=== PATIENT | male | born 1955 | race African-American/Black ===

== ENCOUNTER 2017-02-13 10:08 | Inpatient (IN) | payer OTHER ==
[2017-02-13 10:40] VITALS: BMI 22.1
--- NOTE | 2017-02-13 12:38 | HP ---
COWS - Scale Resting Pulse: 0= [place] 80 or Below Sweatin=Flushed/Facial Moisture Restless Observation: 1= Difficult to Sit Still Pupil Size: 0= Normal to Room Light Bone or Joint Aches: 2= Severe Diffuse Aches Runny Nose/ Eye Tearin= Runny Nose/Eyes GI Upset > 30mins: 2= Nausea/Diarrhea Tremor Observation: 2= Slight Tremor Visible Yawning Observation: 2= >3x During Session Anxiety or Irritability: 2=Irritable/Anxious Goose Flesh Skin: 3=Piloerection COWS Score: 18 CIWA Score - CIWA Score Nausea/Vomitin-Mild Nausea/No Vomiting Muscle Tremors: 4-Moderate,w/Arms Extend Anxiety: 4-Mod. Anxious/Guarded Agitation: 4-Moderately Restless Paroxysmal Sweats: 3 Orientation: 0-Oriented Tacttile Disturbances: 0-None Auditory Disturbances: 0-None Visual Disturbances: 0-None Headache: 1-Very Mild CIWA-Ar Total Score: 17 Admission ROS S - HPI Chief Complaint: I am here to detox. Allergies/Adverse Reactions: Allergies Allergy/AdvReac Type Severity Reaction Status Date / Time No Known Allergies Allergy Verified 02/13/17 11:19 History of Present Illness: pt is a 61yr old male with a history of alcohol and heroin dependence seeking detox for treatment. Exam Limitations: No Limitations - Ebola screening Have you traveled outside of the country in the last 21 days: No Have you had contact with anyone from an Ebola affected area: No Have you been sick,other than usual withdrawal symptoms: No Do you have a fever: No - Review of Systems Constitutional: Chills, Diaphoresis, Loss of Appetite, Night Sweats, Changes in sleep, Unintentional Wgt. Loss EENT: reports: Tearing, Nose Congestion Respiratory: reports: Cough Cardiac: reports: Syncope GI: reports: Diarrhea, Nausea, Poor Appetite, Poor Fluid Intake, Vomiting, Indigestion : reports: No Symptoms Reported Musculoskeletal: reports: Back Pain, Joint Pain Integumentary: reports: Flushing, Sweating Neuro: reports: Headache, Seizure (last seizure few years ago.), Tingling, Tremors Endocrine: reports: Excessive Sweating, Flushing, Intolerance to Cold, Intolerance to Heat Hematology: reports: No Symptoms Reported Psychiatric: reports: Judgement Intact, Orientated x3, Agitated, Anxious Other Systems: Reviewed and Negative Patient History - Patient Medical History Hx Anemia: No Hx Asthma: No Hx Chronic Obstructive Pulmonary Disease (COPD): No Hx Cardiac Disorders: No Hx Hypertension: Yes Hx Hypercholesterolemia: No HX Cerebrovascular Accident: No Hx Seizures: Yes (alcohol related-last episode was in 2011) Hx Diabetes: Yes (currently not on medication) Hx Gastrointestinal Disorders: No Hx Liver Disease: No Hx Genitourinary Disorders: No Hx Sexually Transmitted Disorders: Yes (syphilis) Hx Renal Disease (ESRD): No Hx Thyroid Disease: No Hx Human Immunodeficiency Virus (HIV): No (NEGATIVE HX) Hx Hepatitis C: Yes Hx Depression: Yes Hx Suicide Attempt: No (denies) Hx Bipolar Disorder: Yes Hx Schizophrenia: No Other Medical History: anxiety - Patient Surgical History Past Surgical History: Yes Hx Neurologic Surgery: No Hx Cataract Extraction: No Hx Cardiac Surgery: No Hx Lung Surgery: No Hx Breast Surgery: No Hx Breast Biopsy: No Hx Abdominal Surgery: No Hx Appendectomy: No Hx Cholecystectomy: No Hx Genitourinary Surgery: No Hx Section: No Hx Orthopedic Surgery: No Other Surgical History: LEFT EAR DRUM X2 IN AND 2007..RELATED TO TRUAMA Anesthesia Reaction: No - PPD History Previous Implant?: Yes Documented Results: Negative w/o proof Implanted On Prior [facility] Admission?: Yes PPD to be Administered?: Yes - Reproductive History Patient is a Female of Child Bearing Age (11 -55 yrs old): No - Smoking Cessation Smoking history: Current every day smoker Have you smoked in the past 12 months: Yes Aproximately how many cigarettes per day: 20 Hx Chewing Tobacco Use: No Initiated information on smoking cessation: Yes 'Breaking Loose' booklet given: 02/13/17 - Substance & Tx. History Hx Alcohol Use: Yes Hx Substance Use: Yes Substance Use Type: Alcohol, Heroin Hx Substance Use Treatment: Yes - Substances Abused Heroin Route: Inhalation Frequency: Daily Amount used: 10 bags Age of first use: 23 Date of Last Use: 02/12/17 Alcohol-rum/beer Route: Oral Frequency: Daily Amount used: 2-3 pts./3-6 pks. Age of first use: 17 Date of Last Use: 02/13/17 Family Disease History - Family Disease History Family Disease History: Other: Mother (HTN) Admission Physical Exam [facility] - Vital Signs Vital Signs: Vital Signs - 24 hr 02/13/17 10:37 Temperature 97.7 F Pulse Rate 73 Respiratory 18 Rate Blood Pressure 166/109 - Physical General Appearance: Yes: Appropriately Dressed, Moderate Distress, Thin, Tremorous, Irritable, Sweating, Anxious HEENTM: Yes: Normal Voice, Nasal Congestion, Rhinorrhea Respiratory: Yes: Lungs Clear, Normal Breath Sounds, No Respiratory Distress Neck: Yes: Within Normal Limits Breast: Yes: Within Normal Limits Cardiology: Yes: Regular Rhythm, Regular Rate, S1, S2 Abdominal: Yes: Normal Bowel Sounds, Non Tender, Soft Genitourinary: Yes: Within Normal Limits Back: Yes: Normal Inspection Musculoskeletal: Yes: full range of Motion Extremities: Yes: Normal Capillary Refill, Tremors Neurological: Yes: Fully Oriented, Alert, Normal Response Integumentary: Yes: Normal Color, Diaphoresis Lymphatic: Yes: Within Normal Limits - Diagnostic (1) Alcohol dependence with uncomplicated withdrawal Current Visit: Yes Status: Chronic (2) Nicotine dependence Current Visit: Yes Status: Chronic Qualifiers: Nicotine product type: cigarettes (3) Opioid dependence with withdrawal Current Visit: Yes Status: Chronic (4) Essential hypertension Current Visit: Yes Status: Chronic (5) Hepatitis C carrier Current Visit: Yes Status: Chronic Cleared for Admission [facility] - Detox or Rehab [facility] Level of Care: Medically Managed Detox Regimen/Protocol: Methadone/Librium [facility] Breath Alcohol Content Breath Alcohol Content: 0.087 Urine Drug Screen - Results Drug Screen Negative: No Urine Drug Screen Results: OPI-Opiates
[2017-02-13] MEDS ORDERED: MENTHOL/PHENOL 1 EACH UD MM PRN (13:17)
[2017-02-13] MEDS ORDERED: chlordiazePOXIDE HCL 25 MG CAPSULE PO PRN (13:17)
[2017-02-13] MEDS ORDERED: hydrOXYzine PAMOATE 50 MG CAPSULE (FP) PO PRN (13:17)
[2017-02-13] MEDS ORDERED: IBUPROFEN 400 MG TABLET (FP) PO PRN (13:17)
[2017-02-13] MEDS ORDERED: guaiFENesin/D-METHORPHAN HB 10 ML UNIT-DOSE CUPS PO PRN (13:17)
[2017-02-13] MEDS ORDERED: MAG HYDROX/AL HYDROX/SIMETH 30 ML UNIT-DOSE CUP PO PRN (13:17)
[2017-02-13] MEDS ORDERED: MAGNESIUM CITRATE 300 ML BOTTLE PO PRN (13:17)
[2017-02-13] MEDS ORDERED: METHADONE HCL 10 MG TABLET (FOR DETOX USE ONLY) PO ONE ×2 (13:17→23:00)
[2017-02-13] MEDS ORDERED: NICOTINE POLACRILEX 4 MG GUM BUC PRN (13:17)
[2017-02-13] MEDS ORDERED: ACETAMINOPHEN 325 MG TABLET (FP) PO PRN (13:17)
[2017-02-13] MEDS ORDERED: P-EPHED 60MG/TRIPROLIDI 2.5MG TABLET PO PRN (13:17)
[2017-02-13] MEDS ORDERED: MAGNESIUM HYDROX 2400MG/30ML ORAL SUSPENSION 30 ML CUP PO PRN (13:17)
[2017-02-13] MEDS ORDERED: chlordiazePOXIDE HCL 25 MG CAPSULE PO ONE (13:56)
[2017-02-13] MEDS: PATIENT'S OWN MEDICATION (NON-FORMULARY) (Meloxicam 15 MG) PO SCH (14:25)
--- NOTE | 2017-02-13 15:22 | CONSULT ---
[facility] Psychiatric Consult - Data Date of interview: 02/13/17 Admission source: [facility] Identifying data: Readmission to [facility] for this 61 y/o AA male seeking detox treatment for alcohol and heroin dependence.Patient is single,a father of two,homeless,unemployed and supported on Disability benefits. Substance Abuse History: - Smoking Cessation. Smoking history: Current every day smoker. Have you smoked in the past 12 months: Yes. Aproximately how many cigarettes per day: 20. Hx Chewing Tobacco Use: No. Initiated information on smoking cessation: Yes. 'Breaking Loose' booklet given: 02/13/17. - Substance & Tx. History. Hx Alcohol Use: Yes. Hx Substance Use: Yes. Substance Use Type : Alcohol, Heroin. Hx Substance Use Treatment: Yes. - Substances Abused. Heroin. Route: Inhalation. Frequency: Daily. Amount used: 10 bags. Age of first use: 23. Date of Last Use: 02/12/17. Alcohol-rum/beer. Route: Oral. Frequency: Daily. Amount used: 2-3 pts./3-6 pks. Age of first use: 17. Date of Last Use: 02/13/17. Confirmed by patient in my interview. Medical History: Hypertension,hepatitis C,withdrawal-related seizures,diabetes mellitus,arthritis,BPH (benign prostatic hyperplasia),past treatment for syphilis and a history of surgery for ruptured tympanic membrane in 2007 ( traumatic etiology). Psychiatric History: Patient denies history of psychiatric hospitalizations.Used to be on trazodone 50 mg/hs and remeron 30 mg/hs during his 16 month stay at the [facility] substance abuse program in [facility].Off medications (own choice) for several weeks as per self-report.Diagnosed with MDD and Anxiety Disorder.Mr Boswell denies history of suicide attempts.No OPD care since discharge from the [facility] in [facility].Chronic insomnia is expressed as the most enduring issue. Physical/Sexual Abuse/Trauma History: Patient denies. Additional Comment: Urine Drug Screen Results: OPI-Opiates.Noted. Mental Status Exam - Mental Status Exam Alert and Oriented to: Time, Place, Person Cognitive Function: Good Patient Appearance: Well Groomed (wears an earring in his left earlobe) Mood: Hopeful, Euthymic Affect: Appropriate, Normal Range Patient Behavior: Fatigued, Appropriate, Cooperative Speech Pattern: Clear, Appropriate Voice Loudness: Normal Thought Process: Goal Oriented Thought Disorder: Not Present Hallucinations: Denies Suicidal Ideation: Denies Homicidal Ideation: Denies Insight/Judgement: Poor Sleep: Poorly, Difficulty falling asleep Appetite: Good Muscle strength/Tone: Normal Gait/Station: Normal Psychiatric Findings - Problem List ([place] 1, 2,3) (1) Alcohol dependence with uncomplicated withdrawal Current Visit: Yes Status: Acute (2) Opioid dependence with withdrawal Current Visit: Yes Status: Acute (3) Nicotine dependence Current Visit: Yes Status: Acute Qualifiers: Nicotine product type: cigarettes (4) Substance induced mood disorder Current Visit: Yes Status: Acute (5) Essential hypertension Current Visit: Yes Status: Chronic (6) Hepatitis C carrier Current Visit: Yes Status: Chronic (7) Insomnia Current Visit: Yes Status: Acute - Initial Treatment Plan Initial Treatment Plan: Psychoeducation.Detoxification in progress.Medications : remeron 15 mg po hs + trazodone 50 mg po hs.Side effects/benefits discussed with the patient,including the potential for priapism (trazodone).Advised to stop that medication/summon immediate medical assistance if painful/prolonged erection.Patient is in agreement with this careplan.Observation.
[2017-02-13 16:30] LABS: URINE APPEARANCE CLEAR; URINE BILIRUBIN NEGATIVE (NEGATIVE); URINE COLOR STRAW; URINE GLUCOSE (UA) NEGATIVE (NEGATIVE); URINE KETONE NEGATIVE (NEGATIVE); URINE LEUK ESTERASE NEGATIVE (NEGATIVE); URINE NITRITE NEGATIVE (NEGATIVE); URINE UROBILINOGEN NEGATIVE E.U./dl (0.2-1.0)
[2017-02-13 16:34] LABS: URINE BLOOD 1+ (NEGATIVE); URINE PROTEIN 1+ (NEGATIVE)
[2017-02-13 17:19] LABS: URINE BACTERIA RARE /hpf (NONE SEEN); URINE RBC <1 /hpf (0-3); URINE WBC <1 /hpf (3-5)
[2017-02-13] MEDS: chlordiazePOXIDE HCL 25 MG CAPSULE PO SCH ×2 (17:53→22:24)
[2017-02-13] MEDS: cloNIDine HCL 0.1 MG TABLET PO SCH (22:23)
[2017-02-13] MEDS: traZODone HCL 50 MG TABLET (FP) PO SCH (22:23)
[2017-02-13] MEDS: THIAMINE HCL 100 MG TABLET (FP) PO SCH (22:23)
[2017-02-13] MEDS: diphenhydrAMINE HCL 50 MG CAPSULE PO PRN (22:25)
[2017-02-13] MEDS: MIRTAZAPINE 15 MG TABLET (FP) PO SCH (23:15)
[2017-02-14] MEDS: chlordiazePOXIDE HCL 25 MG CAPSULE PO SCH ×4 (06:28→22:20)
[2017-02-14 10:00] LABS: MCH 30.2 pg (25.7-33.7); MCHC 32.9 g/dl (32.0-35.9); MEAN CELL VOLUME 91.8 fl (80-96); MEAN PLT VOLUME 9.9 fl (7.5-11.1); PLATELET COUNT 183 K/MM3 (134-434); WHITE BLOOD COUNT 5.6 K/mm3 (4.0-10.0)
[2017-02-14] MEDS ORDERED: METHADONE HCL 10 MG TABLET (FOR DETOX USE ONLY) PO SCH (10:00)
[2017-02-14 10:24] LABS: BILIRUBIN,TOTAL 0.7 mg/dL (0.2-1.0); CALCIUM 9.3 mg/dL (8.5-10.1); CREATININE 1.6 mg/dL (0.7-1.3); TOT PROT 8.7 g/dl (6.4-8.2)
[2017-02-14] MEDS: amLODIPine BESYLATE 10 MG TABLET (FP) PO SCH (10:26)
[2017-02-14] MEDS: NICOTINE 21 MG/24 HOURS TOPICAL PATCH TD SCH (10:26)
[2017-02-14] MEDS: PRENATAL VITAMINS W/ FOLIC ACID TABLET (FP) PO SCH (10:26)
[2017-02-14] MEDS: cloNIDine HCL 0.1 MG TABLET PO SCH ×2 (10:26→22:19)
[2017-02-14] MEDS: PATIENT'S OWN MEDICATION (NON-FORMULARY) (Meloxicam 15 MG) PO SCH (10:27)
[2017-02-14] MEDS: LISINOPRIL 10 MG TABLET (FP) PO SCH (10:27)
--- NOTE | 2017-02-14 12:29 | PN ---
[facility] CIWA - CIWA Score Nausea/Vomitin Muscle Tremors: 3 Anxiety: 4-Mod. Anxious/Guarded Agitation: 3 Paroxysmal Sweats: 1-Minimal Palms Moist Orientation: 0-Oriented Tacttile Disturbances: 3-Moderate Itch/Numb/Burn Auditory Disturbances: 0-None Visual Disturbances: 0-None Headache: 0-None Present CIWA-Ar Total Score: 19 [facility] COWS - Scale Resting Pulse: 0= [place] 80 or Below Sweatin= Chills/Flushing Restless Observation: 3= Extraneous Movement Pupil Size: 2= Moderately Dilated Bone or Joint Aches: 4=Acute Joint/Muscle Pain Runny Nose/ Eye Tearin= Nasal Congestion GI Upset > 30mins: 1= Stomach Cramp Tremor Observation of Outstretched Hands: 2= Slight Tremor Visible Yawning Observation: 2= >3x During Session Anxiety or Irritability: 1=Feels Anxious/Irritable Goose Flesh Skin: 0=Smooth Skin COWS Score: 17 S Progress Note (SOAP) Subjective: ANXIETY,SWEATS,TREMORS,DIARRHEA,INTERMITTENT SLEEP Objective: 02/14/17 12:28 Vital Signs Temperature 96.4 F L 02/14/17 10:32 Pulse Rate 70 02/14/17 10:32 Respiratory Rate 18 02/14/17 10:32 Blood Pressure 94/64 02/14/17 10:32 O2 Sat by Pulse Oximetry (%) Laboratory Last Values WBC 5.6 K/mm3 (4.0-10.0) 02/14/17 06:00 RBC 4.89 M/mm3 (4.00-5.60) 02/14/17 06:00 Hgb 14.8 GM/dL (11.7-16.9) 02/14/17 06:00 Hct 44.8 % (35.4-49) 02/14/17 06:00 MCV 91.8 fl (80-96) 02/14/17 06:00 MCHC 32.9 g/dl (32.0-35.9) 02/14/17 06:00 RDW 13.0 % (11.9-15.9) 02/14/17 06:00 Plt Count 183 K/MM3 (134-434) 02/14/17 06:00 MPV 9.9 fl (7.5-11.1) 02/14/17 06:00 Sodium 136 mmol/L (136-145) 02/14/17 06:00 Potassium 4.1 mmol/L (3.5-5.1) 02/14/17 06:00 Chloride 100 mmol/L (98-107) 02/14/17 06:00 Carbon Dioxide 24 mmol/L (21-32) D 02/14/17 06:00 Anion Gap 12 (8-16) 02/14/17 06:00 BUN 17 mg/dL (7-18) 02/14/17 06:00 Creatinine 1.6 mg/dL (0.7-1.3) H D 02/14/17 06:00 Creat Clearance w eGFR 44.46 (>60) 02/14/17 06:00 POC Glucometer 93 UNITS (()) 02/13/17 11:44 Random Glucose 95 mg/dL (74-106) 02/14/17 06:00 Calcium 9.3 mg/dL (8.5-10.1) 02/14/17 06:00 Total Bilirubin 0.7 mg/dL (0.2-1.0) D 02/14/17 06:00 AST 71 U/L (15-37) H D 02/14/17 06:00 ALT 66 U/L (12-78) D 02/14/17 06:00 Alkaline Phosphatase 92 U/L (45-117) D 02/14/17 06:00 Total Protein 8.7 g/dl (6.4-8.2) H 02/14/17 06:00 Albumin 4.0 g/dl (3.4-5.0) 02/14/17 06:00 Urine Color Straw 02/13/17 15:00 Urine Appearance Clear 02/13/17 15:00 Urine pH 6.0 (5.0-8.0) 02/13/17 15:00 Ur Specific [place] 1.005 (1.001-1.035) 02/13/17 15:00 Urine Protein 1+ (NEGATIVE) H 02/13/17 15:00 Urine Glucose (UA) Negative (NEGATIVE) 02/13/17 15:00 Urine Ketones Negative (NEGATIVE) 02/13/17 15:00 Urine Blood 1+ (NEGATIVE) H 02/13/17 15:00 Urine Nitrite Negative (NEGATIVE) 02/13/17 15:00 Urine Bilirubin Negative (NEGATIVE) 02/13/17 15:00 Urine Urobilinogen Negative E.U./dl (0.2-1.0) 02/13/17 15:00 Ur Leukocyte Esterase Negative (NEGATIVE) 02/13/17 15:00 Urine RBC <1 /hpf (0-3) 02/13/17 15:00 Urine WBC <1 /hpf (3-5) 02/13/17 15:00 Urine Bacteria Rare /hpf (NONE SEEN) 02/13/17 15:00 RPR Titer Nonreactive (NONREACTIVE) 02/14/17 06:00 Hepatitis C Antibody >11.0 s/co ratio (0.0-0.9) H 02/13/17 14:15 PT HAS HX OF HEP C Assessment: 02/14/17 12:29 WITHDRAWAL SX Plan: CONTINUE DETOX IMODIUM PRN
[2017-02-14] MEDS: LOPERAMIDE HCL 2 MG CAPSULE PO PRN (13:13)
--- NOTE | 2017-02-14 15:31 | EKG ---
Test Reason : Blood Pressure : / mmHG Vent. Rate : 067 BPM Atrial Rate : 067 BPM P-R Int : 154 ms QRS Dur : 080 ms QT Int : 416 ms P-R-T Axes : 073 055 041 degrees QTc Int : 439 ms NORMAL SINUS RHYTHM POSSIBLE LEFT ATRIAL ENLARGEMENT SEPTAL INFARCT , AGE UNDETERMINED ABNORMAL ECG NO PREVIOUS ECGS AVAILABLE Confirmed by VALARIE ALEMAN MD ([id number]) on 02/14/2017 3:31:35 PM Referred By: Khanh Lee Confirmed By:VALARIE ALEMAN MD
[2017-02-14] MEDS: traZODone HCL 50 MG TABLET (FP) PO SCH (22:19)
[2017-02-14] MEDS: THIAMINE HCL 100 MG TABLET (FP) PO SCH (22:19)
[2017-02-14] MEDS: diphenhydrAMINE HCL 50 MG CAPSULE PO PRN (22:20)
[2017-02-14] MEDS: MIRTAZAPINE 15 MG TABLET (FP) PO SCH (22:59)
[2017-02-15] MEDS: chlordiazePOXIDE HCL 25 MG CAPSULE PO SCH ×2 (05:53→10:29)
[2017-02-15] MEDS: LOPERAMIDE HCL 2 MG CAPSULE PO PRN (09:05)
[2017-02-15] MEDS: PATIENT'S OWN MEDICATION (NON-FORMULARY) (Meloxicam 15 MG) PO SCH (10:27)
[2017-02-15] MEDS: METHADONE HCL 5 MG TABLET (FOR DETOX USE ONLY) PO SCH (10:27)
[2017-02-15] MEDS: PRENATAL VITAMINS W/ FOLIC ACID TABLET (FP) PO SCH (10:28)
[2017-02-15] MEDS: NICOTINE 21 MG/24 HOURS TOPICAL PATCH TD SCH (10:28)
[2017-02-15] MEDS: LISINOPRIL 10 MG TABLET (FP) PO SCH (10:58)
[2017-02-15] MEDS: cloNIDine HCL 0.1 MG TABLET PO SCH ×2 (10:58→22:22)
[2017-02-15] MEDS: amLODIPine BESYLATE 10 MG TABLET (FP) PO SCH (10:58)
--- NOTE | 2017-02-15 11:26 | PN ---
[facility] CIWA - CIWA Score Nausea/Vomitin-No Nausea/No Vomiting Muscle Tremors: 4-Moderate,w/Arms Extend Anxiety: 4-Mod. Anxious/Guarded Agitation: 4-Moderately Restless Paroxysmal Sweats: 1-Minimal Palms Moist Orientation: 0-Oriented Tacttile Disturbances: 3-Moderate Itch/Numb/Burn Auditory Disturbances: 0-None Visual Disturbances: 0-None Headache: 0-None Present CIWA-Ar Total Score: 16 S COWS - Scale Resting Pulse: 0= [place] 80 or Below Sweatin= Chills/Flushing Restless Observation: 3= Extraneous Movement Pupil Size: 2= Moderately Dilated Bone or Joint Aches: 4=Acute Joint/Muscle Pain Runny Nose/ Eye Tearin= Nasal Congestion GI Upset > 30mins: 2= Nausea/Diarrhea Tremor Observation of Outstretched Hands: 1= Tremor [place], Not Seen Yawning Observation: 1= 1-2x During Session Anxiety or Irritability: 2=Irritable/Anxious Goose Flesh Skin: 0=Smooth Skin COWS Score: 17 [facility] Progress Note (SOAP) Subjective: ANXIETY,SWEATS,DIARRHEA,TREMORS,FATIGUE BP MEDS HELD DUE TO LOWER BP IN PAST FEW DAYS. Objective: 02/15/17 11:25 Vital Signs Temperature 96 F L 02/15/17 10:38 Pulse Rate 71 02/15/17 10:38 Respiratory Rate 18 02/15/17 10:38 Blood Pressure 100/70 02/15/17 10:38 O2 Sat by Pulse Oximetry (%) Laboratory Last Values WBC 5.6 K/mm3 (4.0-10.0) 02/14/17 06:00 RBC 4.89 M/mm3 (4.00-5.60) 02/14/17 06:00 Hgb 14.8 GM/dL (11.7-16.9) 02/14/17 06:00 Hct 44.8 % (35.4-49) 02/14/17 06:00 MCV 91.8 fl (80-96) 02/14/17 06:00 MCHC 32.9 g/dl (32.0-35.9) 02/14/17 06:00 RDW 13.0 % (11.9-15.9) 02/14/17 06:00 Plt Count 183 K/MM3 (134-434) 02/14/17 06:00 MPV 9.9 fl (7.5-11.1) 02/14/17 06:00 Sodium 136 mmol/L (136-145) 02/14/17 06:00 Potassium 4.1 mmol/L (3.5-5.1) 02/14/17 06:00 Chloride 100 mmol/L (98-107) 02/14/17 06:00 Carbon Dioxide 24 mmol/L (21-32) D 02/14/17 06:00 Anion Gap 12 (8-16) 02/14/17 06:00 BUN 17 mg/dL (7-18) 02/14/17 06:00 Creatinine 1.6 mg/dL (0.7-1.3) H D 02/14/17 06:00 Creat Clearance w eGFR 44.46 (>60) 02/14/17 06:00 POC Glucometer 93 UNITS (()) 02/13/17 11:44 Random Glucose 95 mg/dL (74-106) 02/14/17 06:00 Calcium 9.3 mg/dL (8.5-10.1) 02/14/17 06:00 Total Bilirubin 0.7 mg/dL (0.2-1.0) D 02/14/17 06:00 AST 71 U/L (15-37) H D 02/14/17 06:00 ALT 66 U/L (12-78) D 02/14/17 06:00 Alkaline Phosphatase 92 U/L (45-117) D 02/14/17 06:00 Total Protein 8.7 g/dl (6.4-8.2) H 02/14/17 06:00 Albumin 4.0 g/dl (3.4-5.0) 02/14/17 06:00 Urine Color Straw 02/13/17 15:00 Urine Appearance Clear 02/13/17 15:00 Urine pH 6.0 (5.0-8.0) 02/13/17 15:00 Ur Specific [place] 1.005 (1.001-1.035) 02/13/17 15:00 Urine Protein 1+ (NEGATIVE) H 02/13/17 15:00 Urine Glucose (UA) Negative (NEGATIVE) 02/13/17 15:00 Urine Ketones Negative (NEGATIVE) 02/13/17 15:00 Urine Blood 1+ (NEGATIVE) H 02/13/17 15:00 Urine Nitrite Negative (NEGATIVE) 02/13/17 15:00 Urine Bilirubin Negative (NEGATIVE) 02/13/17 15:00 Urine Urobilinogen Negative E.U./dl (0.2-1.0) 02/13/17 15:00 Ur Leukocyte Esterase Negative (NEGATIVE) 02/13/17 15:00 Urine RBC <1 /hpf (0-3) 02/13/17 15:00 Urine WBC <1 /hpf (3-5) 02/13/17 15:00 Urine Bacteria Rare /hpf (NONE SEEN) 02/13/17 15:00 RPR Titer Nonreactive (NONREACTIVE) 02/14/17 06:00 Hepatitis C Antibody >11.0 s/co ratio (0.0-0.9) H 02/13/17 14:15 Assessment: 02/15/17 11:26 WITHDRAWAL SX Plan: CONTINUE DETOX MONITOR PT
[2017-02-15] MEDS: chlordiazePOXIDE 5 MG CAPSULE PO SCH ×2 (17:25→22:22)
[2017-02-15] MEDS: THIAMINE HCL 100 MG TABLET (FP) PO SCH (22:22)
[2017-02-15] MEDS: MIRTAZAPINE 15 MG TABLET (FP) PO SCH (22:22)
[2017-02-15] MEDS: traZODone HCL 50 MG TABLET (FP) PO SCH (22:22)
[2017-02-16] MEDS: chlordiazePOXIDE 5 MG CAPSULE PO SCH ×2 (06:09→10:23)
[2017-02-16] MEDS: cloNIDine HCL 0.1 MG TABLET PO SCH ×2 (10:23→22:44)
[2017-02-16] MEDS: amLODIPine BESYLATE 10 MG TABLET (FP) PO SCH (10:23)
[2017-02-16] MEDS: LISINOPRIL 10 MG TABLET (FP) PO SCH (10:23)
[2017-02-16] MEDS: PRENATAL VITAMINS W/ FOLIC ACID TABLET (FP) PO SCH (10:23)
[2017-02-16] MEDS: METHADONE HCL 5 MG TABLET (FOR DETOX USE ONLY) PO SCH (10:24)
[2017-02-16] MEDS: PATIENT'S OWN MEDICATION (NON-FORMULARY) (Meloxicam 15 MG) PO SCH (10:24)
[2017-02-16] MEDS: NICOTINE 21 MG/24 HOURS TOPICAL PATCH TD SCH (10:24)
--- NOTE | 2017-02-16 15:45 | PN ---
S Progress Note (SOAP) Subjective: Lower Back Ache, Sweating, Tremors, Hot/Cold sensations, Interrupted sleep, Diarrhea, Body Aches. Objective: PT. A & O X 3. 02/16/17 15:44 Vital Signs Temperature 98.4 F 02/16/17 09:51 Pulse Rate 69 02/16/17 09:51 Respiratory Rate 18 02/16/17 09:51 Blood Pressure 119/75 02/16/17 09:51 O2 Sat by Pulse Oximetry (%) Laboratory Last Values WBC 5.6 K/mm3 (4.0-10.0) 02/14/17 06:00 RBC 4.89 M/mm3 (4.00-5.60) 02/14/17 06:00 Hgb 14.8 GM/dL (11.7-16.9) 02/14/17 06:00 Hct 44.8 % (35.4-49) 02/14/17 06:00 MCV 91.8 fl (80-96) 02/14/17 06:00 MCHC 32.9 g/dl (32.0-35.9) 02/14/17 06:00 RDW 13.0 % (11.9-15.9) 02/14/17 06:00 Plt Count 183 K/MM3 (134-434) 02/14/17 06:00 MPV 9.9 fl (7.5-11.1) 02/14/17 06:00 Sodium 136 mmol/L (136-145) 02/14/17 06:00 Potassium 4.1 mmol/L (3.5-5.1) 02/14/17 06:00 Chloride 100 mmol/L (98-107) 02/14/17 06:00 Carbon Dioxide 24 mmol/L (21-32) D 02/14/17 06:00 Anion Gap 12 (8-16) 02/14/17 06:00 BUN 17 mg/dL (7-18) 02/14/17 06:00 Creatinine 1.6 mg/dL (0.7-1.3) H D 02/14/17 06:00 Creat Clearance w eGFR 44.46 (>60) 02/14/17 06:00 POC Glucometer 93 UNITS (()) 02/13/17 11:44 Random Glucose 95 mg/dL (74-106) 02/14/17 06:00 Calcium 9.3 mg/dL (8.5-10.1) 02/14/17 06:00 Total Bilirubin 0.7 mg/dL (0.2-1.0) D 02/14/17 06:00 AST 71 U/L (15-37) H D 02/14/17 06:00 ALT 66 U/L (12-78) D 02/14/17 06:00 Alkaline Phosphatase 92 U/L (45-117) D 02/14/17 06:00 Total Protein 8.7 g/dl (6.4-8.2) H 02/14/17 06:00 Albumin 4.0 g/dl (3.4-5.0) 02/14/17 06:00 Urine Color Straw 02/13/17 15:00 Urine Appearance Clear 02/13/17 15:00 Urine pH 6.0 (5.0-8.0) 02/13/17 15:00 Ur Specific [place] 1.005 (1.001-1.035) 02/13/17 15:00 Urine Protein 1+ (NEGATIVE) H 02/13/17 15:00 Urine Glucose (UA) Negative (NEGATIVE) 02/13/17 15:00 Urine Ketones Negative (NEGATIVE) 02/13/17 15:00 Urine Blood 1+ (NEGATIVE) H 02/13/17 15:00 Urine Nitrite Negative (NEGATIVE) 02/13/17 15:00 Urine Bilirubin Negative (NEGATIVE) 02/13/17 15:00 Urine Urobilinogen Negative E.U./dl (0.2-1.0) 02/13/17 15:00 Ur Leukocyte Esterase Negative (NEGATIVE) 02/13/17 15:00 Urine RBC <1 /hpf (0-3) 02/13/17 15:00 Urine WBC <1 /hpf (3-5) 02/13/17 15:00 Urine Bacteria Rare /hpf (NONE SEEN) 02/13/17 15:00 RPR Titer Nonreactive (NONREACTIVE) 02/14/17 06:00 Hepatitis C Antibody >11.0 s/co ratio (0.0-0.9) H 02/13/17 14:15 LABS NOTED. Assessment: 02/16/17 15:45 WITHDRAWAL SYMPTOMS. Plan: CONTINUE DETOX. ADVISED PATIENT TO FOLLOW-UP WITH ROOM WORKER / REHAB MEDICAL PROVIDER AFTER DISCHARGE FROM DETOX FOR GENERAL MEDICAL ASSESSMENT AND FOR ANY ABNORMAL ADMISSION LAB VALUES.
[2017-02-16] MEDS: chlordiazePOXIDE HCL 10 MG CAPSULE PO SCH ×2 (18:19→22:43)
[2017-02-16] MEDS: LOPERAMIDE HCL 2 MG CAPSULE PO PRN (22:43)
[2017-02-16] MEDS: MIRTAZAPINE 15 MG TABLET (FP) PO SCH (22:43)
[2017-02-16] MEDS: traZODone HCL 50 MG TABLET (FP) PO SCH (22:43)
[2017-02-16] MEDS: THIAMINE HCL 100 MG TABLET (FP) PO SCH (22:43)
[2017-02-17] MEDS: chlordiazePOXIDE HCL 10 MG CAPSULE PO SCH ×2 (06:02→10:34)
[2017-02-17] MEDS: LOPERAMIDE HCL 2 MG CAPSULE PO PRN (06:03)
[2017-02-17] MEDS ORDERED: METHADONE HCL 10 MG TABLET (FOR DETOX USE ONLY) PO SCH (10:00)
[2017-02-17] MEDS: PATIENT'S OWN MEDICATION (NON-FORMULARY) (Meloxicam 15 MG) PO SCH (10:34)
[2017-02-17] MEDS: cloNIDine HCL 0.1 MG TABLET PO SCH ×2 (10:34→22:10)
[2017-02-17] MEDS: LISINOPRIL 10 MG TABLET (FP) PO SCH (10:34)
[2017-02-17] MEDS: PRENATAL VITAMINS W/ FOLIC ACID TABLET (FP) PO SCH (10:34)
[2017-02-17] MEDS: amLODIPine BESYLATE 10 MG TABLET (FP) PO SCH (10:34)
[2017-02-17] MEDS: NICOTINE 21 MG/24 HOURS TOPICAL PATCH TD SCH (10:39)
--- NOTE | 2017-02-17 11:57 | PN ---
[facility] Progress Note (SOAP) Subjective: Shoulder pain, diarrhea, interrupted sleep, anxious, sweating Objective: 02/17/17 11:53 Last Vital Signs Temp Pulse Resp BP Pulse Ox 97.1 F L 79 18 98/60 02/17/17 06:39 02/17/17 06:39 02/17/17 06:39 02/17/17 06:39 Laboratory Tests 02/13/17 02/13/17 02/13/17 11:44 14:15 15:00 WBC RBC Hgb Hct MCV MCHC RDW Plt Count MPV Sodium Potassium Chloride Carbon Dioxide Anion Gap BUN Creatinine Creat Clearance w eGFR POC Glucometer 93 Random Glucose Calcium Total Bilirubin AST ALT Alkaline Phosphatase Total Protein Albumin Urine Color Straw Urine Appearance Clear Urine pH 6.0 Ur Specific [place] 1.005 Urine Protein 1+ H Urine Glucose (UA) Negative Urine Ketones Negative Urine Blood 1+ H Urine Nitrite Negative Urine Bilirubin Negative Urine Urobilinogen Negative Ur Leukocyte Esterase Negative Urine RBC <1 Urine WBC <1 Urine Bacteria Rare RPR Titer Hepatitis C Antibody >11.0 H 02/14/17 02/14/17 02/14/17 06:00 06:00 06:00 WBC 5.6 RBC 4.89 Hgb 14.8 Hct 44.8 MCV 91.8 MCHC 32.9 RDW 13.0 Plt Count 183 MPV 9.9 Sodium 136 Potassium 4.1 Chloride 100 Carbon Dioxide 24 D Anion Gap 12 BUN 17 Creatinine 1.6 H D Creat Clearance w eGFR 44.46 POC Glucometer Random Glucose 95 Calcium 9.3 Total Bilirubin 0.7 D AST 71 H D ALT 66 D Alkaline Phosphatase 92 D Total Protein 8.7 H Albumin 4.0 Urine Color Urine Appearance Urine pH Ur Specific [place] Urine Protein Urine Glucose (UA) Urine Ketones Urine Blood Urine Nitrite Urine Bilirubin Urine Urobilinogen Ur Leukocyte Esterase Urine RBC Urine WBC Urine Bacteria RPR Titer Nonreactive Hepatitis C Antibody Labs noted: serum creatinine 1.6, BUN 17, GFR 44.46; UA: 1+ protein, 1+ blood Assessment: 02/17/17 11:55 Withdrawal symptoms Noted with NICOLE/CRF Noted with proteinuria and microscopic hematuria Plan: Continue detox NICOLE/CRF: encouraged to drink lots of water, repeat BMP, Follow up with PCP post discharge for further monitoring/evaluation Proteinuria and Microscopic hematuria: encouraged to drink more water, repeat UA
[2017-02-17] MEDS: traZODone HCL 50 MG TABLET (FP) PO SCH (22:10)
[2017-02-17] MEDS: MIRTAZAPINE 15 MG TABLET (FP) PO SCH (22:10)
[2017-02-17] MEDS: THIAMINE HCL 100 MG TABLET (FP) PO SCH (22:10)
[2017-02-17] MEDS: diphenhydrAMINE HCL 50 MG CAPSULE PO PRN (22:11)
[2017-02-18] MEDS ORDERED: METHADONE HCL 5 MG TABLET (FOR DETOX USE ONLY) PO SCH (06:00)
[2017-02-18 06:27] VITALS: BP 93/64; PULSE 68; TEMP 95.5
--- NOTE | 2017-02-18 08:52 | DS ---
[facility] Detox Discharge Summary Admission Date: 02/13/17 Discharge Date: 02/18/17 - History Present History: Alcohol Dependence, Opioid Dependence Pertinent Past History: HTN Hep C - Physical Exam Results Vital Signs: Vital Signs Temperature 95.5 F L 02/18/17 06:27 Pulse Rate 68 02/18/17 06:27 Respiratory Rate 16 02/18/17 06:27 Blood Pressure 93/64 02/18/17 06:27 O2 Sat by Pulse Oximetry (%) Pertinent Admission Physical Exam Findings: Withdrawal sx. Laboratory Last Values WBC 5.6 K/mm3 (4.0-10.0) 02/14/17 06:00 RBC 4.89 M/mm3 (4.00-5.60) 02/14/17 06:00 Hgb 14.8 GM/dL (11.7-16.9) 02/14/17 06:00 Hct 44.8 % (35.4-49) 02/14/17 06:00 MCV 91.8 fl (80-96) 02/14/17 06:00 MCHC 32.9 g/dl (32.0-35.9) 02/14/17 06:00 RDW 13.0 % (11.9-15.9) 02/14/17 06:00 Plt Count 183 K/MM3 (134-434) 02/14/17 06:00 MPV 9.9 fl (7.5-11.1) 02/14/17 06:00 Sodium 136 mmol/L (136-145) 02/14/17 06:00 Potassium 4.1 mmol/L (3.5-5.1) 02/14/17 06:00 Chloride 100 mmol/L (98-107) 02/14/17 06:00 Carbon Dioxide 24 mmol/L (21-32) D 02/14/17 06:00 Anion Gap 12 (8-16) 02/14/17 06:00 BUN 17 mg/dL (7-18) 02/14/17 06:00 Creatinine 1.6 mg/dL (0.7-1.3) H D 02/14/17 06:00 Creat Clearance w eGFR 44.46 (>60) 02/14/17 06:00 POC Glucometer 93 UNITS (()) 02/13/17 11:44 Random Glucose 95 mg/dL (74-106) 02/14/17 06:00 Calcium 9.3 mg/dL (8.5-10.1) 02/14/17 06:00 Total Bilirubin 0.7 mg/dL (0.2-1.0) D 02/14/17 06:00 AST 71 U/L (15-37) H D 02/14/17 06:00 ALT 66 U/L (12-78) D 02/14/17 06:00 Alkaline Phosphatase 92 U/L (45-117) D 02/14/17 06:00 Total Protein 8.7 g/dl (6.4-8.2) H 02/14/17 06:00 Albumin 4.0 g/dl (3.4-5.0) 02/14/17 06:00 Urine Color Straw 02/13/17 15:00 Urine Appearance Clear 02/13/17 15:00 Urine pH 6.0 (5.0-8.0) 02/13/17 15:00 Ur Specific [place] 1.005 (1.001-1.035) 02/13/17 15:00 Urine Protein 1+ (NEGATIVE) H 02/13/17 15:00 Urine Glucose (UA) Negative (NEGATIVE) 02/13/17 15:00 Urine Ketones Negative (NEGATIVE) 02/13/17 15:00 Urine Blood 1+ (NEGATIVE) H 02/13/17 15:00 Urine Nitrite Negative (NEGATIVE) 02/13/17 15:00 Urine Bilirubin Negative (NEGATIVE) 02/13/17 15:00 Urine Urobilinogen Negative E.U./dl (0.2-1.0) 02/13/17 15:00 Ur Leukocyte Esterase Negative (NEGATIVE) 02/13/17 15:00 Urine RBC <1 /hpf (0-3) 02/13/17 15:00 Urine WBC <1 /hpf (3-5) 02/13/17 15:00 Urine Bacteria Rare /hpf (NONE SEEN) 02/13/17 15:00 RPR Titer Nonreactive (NONREACTIVE) 02/14/17 06:00 Hepatitis C Antibody >11.0 s/co ratio (0.0-0.9) H 02/13/17 14:15 labs noted, pt. is known to have hep c - Treatment Hospital Course: Detox Protocol Followed, Detoxed Safely, Responded well, Discharged Condition Good, Rehab Referral Accepted Patient has Accepted a Rehab Referral to: Refuses in-pt. rehab, he's referred to 12 steps meetings. - Medication Discharge Medications: Ambulatory Orders Amlodipine Besylate [Norvasc -] 10 mg PO DAILY 02/13/17 Clonidine HCl [Catapres -] 0.1 mg PO BID 02/13/17 Lisinopril [Prinivil] 10 mg PO DAILY 02/13/17 Meloxicam [Mobic (Nf) -] 15 mg PO DAILY 02/13/17 Mirtazapine [Remeron -] 30 mg PO HS 02/13/17 Trazodone HCl [Desyrel -] 50 mg PO HS 02/13/17 - Diagnosis (1) Alcohol dependence with uncomplicated withdrawal Current Visit: Yes Status: Acute (2) Insomnia Current Visit: Yes Status: Acute (3) Nicotine dependence Current Visit: Yes Status: Acute Qualifiers: Nicotine product type: cigarettes (4) Opioid dependence with withdrawal Current Visit: Yes Status: Acute (5) Substance induced mood disorder Current Visit: Yes Status: Acute (6) Essential hypertension Current Visit: Yes Status: Chronic (7) Hepatitis C carrier Current Visit: Yes Status: Chronic - AMA Did Patient Leave Against Medical Advice: No
[2017-02-18 10:50] LABS: CALCIUM 8.4 mg/dL (8.5-10.1); CREATININE 1.6 mg/dL (0.7-1.3)
[2017-02-18 14:12] LABS: HCV LOG 10 6.078 (.)
== END 2017-02-18 09:31 | disposition home or self-care (01) | DRG 773 ==
LOC: YASAS 10:08 → Y3N 11:58
PROVIDERS: ADMIT Internal Medicine; ATTEND Internal Medicine
PROC: HZ2ZZZZ Detoxification Services for Substance Abuse Treatment (ICD-10-PCS; principal; 2017-02-18)
DX: F11.23 Opioid dependence with withdrawal (principal); F10.230 Alcohol dependence with withdrawal, uncomplicated; F17.210 Nicotine dependence, cigarettes, uncomplicated; F19.24 Other psychoactive substance dependence with psychoactive substance-induced mood disorder; G47.00 Insomnia, unspecified; I10 Essential (primary) hypertension; B18.2 Chronic viral hepatitis C
CPT/HCPCS: 36415; 80048; 80053; 81003; 81015; 85027; 86593; 87522; 93005; 93010